=== PATIENT | female | born 1970 | race Caucasian/White ===

== ENCOUNTER 2023-04-07 13:03 | Emergency (ER) | payer OTHER ==
[~2023-04-07] VITALS: Ht 162.6 cm; Wt 50.3 kg
[2023-04-07 13:45] VITALS: O2SAT 100
[2023-04-07] MEDS ORDERED: AMOXICILLIN-CLAVUL 875-125MG TABLET ONE (14:34)
[2023-04-07] MEDS ORDERED: BACITRACIN ZINC OINT 15 GM TUBE ONE (14:34)
[2023-04-07] MEDS ORDERED: AMOX-427 PO (14:47)
[2023-04-07] MEDS ORDERED: NEOMY/BACITRA/POLYMYXIN B OINT UD PACKET TP ONE (15:00)
[2023-04-07] MEDS ORDERED: AMOXICILLIN-CLAVUL 875-125MG TABLET PO ONE (15:00)
== END 2023-04-07 15:06 | disposition home or self-care (01) ==
LOC: ER 13:03
DX: S41.151A Open bite of right upper arm, initial encounter (principal); S01.551A Open bite of lip, initial encounter; Z88.1 Allergy status to other antibiotic agents; Z79.2 Long term (current) use of antibiotics; W54.0XXA Bitten by dog, initial encounter; Y93.89 Activity, other specified; Y92.89 Other specified places as the place of occurrence of the external cause; Y99.8 Other external cause status
CPT/HCPCS: A4606; A4663